=== PATIENT | female | born 1985 | race Caucasian/White ===

== ENCOUNTER → 2017-04-10 | Outpatient (CLI) | payer OTHER ==
[~2017-04-10] MED LIST: GADOBUTROL 10 MMOL/10 ML VIAL IV ONE
--- NOTE | 2017-04-10 16:29 | KCIC ---
MRI abdomen with and without contrast dated 04/10/2017. No comparison available. Clinical indication: History of abnormal CT. Evaluate liver lesion. TECHNIQUE: Routine multiplanar multisequence MR imaging of abdomen performed with and without the administration of 6 cc Gadavist. FINDINGS: The liver is heterogeneous in signal and there is diffuse signal dropout on the out of phase gradient images, suggesting fatty infiltration. There are multiple well-circumscribed nodules throughout the left and right lobe that remain hyperintense in signal on the out of phase images and are hyperintense on the precontrast gradient T1 images. The largest lesion is located in the inferior right lobe, segment 5 measuring 3.1 cm in size. There are also 2 prominent nodules at the right lobe liver superiorly, segment 8 measuring 1.2 and 2.0 cm in size in age. There are several additional smaller nodules scattered throughout both lobes. The lesions show some arterial hyperenhancement and remain hyperintense throughout the delayed phases. The lesions are mildly hyperintense signal on T2. The biliary tree is normal in caliber. No filling defect of the CBD. Gallbladder unremarkable. Spleen is normal in size. Pancreas, adrenal glands and kidneys are unremarkable. No hydronephrosis. No localized adenopathy or ascites. IMPRESSION: 1. Multiple T1 hyperintense hyperenhancing nodules scattered throughout both lobes of liver, indeterminate. Differential diagnosis would include multifocal nodular hyperplasia (FNH) or multiple hepatic adenoma. Metastatic disease or multifocal hemangioma considered less likely. Follow-up imaging may be warranted to ensure stability. 2. Fatty infiltration of the liver. Electronically signed by: Glenn Gibbons MD (04/10/2017 4:26 PM) [id number]
== END | disposition home or self-care (01) ==
LOC: KCIC MRI 14:20
PROVIDERS: ATTEND Internal Medicine Gastroenterology
DX: K76.0 Fatty (change of) liver, not elsewhere classified (principal)
CPT/HCPCS: 74183; A9585

== ENCOUNTER → 2017-10-27 | Outpatient (CLI) | payer OTHER ==
[2017-10-27] MEDS: GADOBUTROL 10 MMOL/10 ML VIAL IV (15:46)
== END | disposition home or self-care (01) ==
LOC: KCIC MRI 15:12
DX: K76.0 Fatty (change of) liver, not elsewhere classified (principal); K31.89 Other diseases of stomach and duodenum
CPT/HCPCS: 74183; A9585

== ENCOUNTER → 2020-02-07 | Outpatient (CLI) | payer OTHER ==
[~2020-02-07] MED LIST changes: -GADOBUTROL 10 MMOL/10 ML VIAL IV ONE; +OXYC1TAB15 PO
== END | disposition home or self-care (01) ==
LOC: LAB 14:42
PROVIDERS: ATTEND Surgery
DX: Z01.812 Encounter for preprocedural laboratory examination (principal); K80.20 Calculus of gallbladder without cholecystitis without obstruction; Z20.828 Contact with and (suspected) exposure to other viral communicable diseases
CPT/HCPCS: U0003-CS

== ENCOUNTER 2020-02-12 07:52 | Day surgery (SDC) | payer OTHER ==
[~2020-02-12] VITALS: Ht 152.4 cm; Wt 64.0 kg
[~2020-02-12 07:52] MED LIST changes: +BUPIVACAINE MPF 0.5% 30 ML VIAL. ONE; +HYDROmorphone 2 MG/ML VIAL IV PRN; +IOHEXOL 300 MG/ML 50 ML VIAL. ONE; +IV RINGERS,LACTATED 1000ML 1,000 ML IV SCH; +LIDOCAINE 1% PF 2 ML VIAL. ID PRN; +MORPHINE SULFATE 2 MG/ML VIAL. IV PRN; +ONDANSETRON PF 4 MG/2 ML VIAL. IV PRN; -OXYC1TAB15 PO; +PROCHLORPERAZINE 10 MG/2 ML VIAL. IV PRN; +SURGICEL HEMOSTAT 4X8 EACH. ONE; +ceFAZolin SODIUM IV Push 1 GM VIAL. IVP PRN; +fentaNYL PF VIAL 100 MCG/2 ML VIAL IV PRN
[2020-02-12] MEDS ORDERED: PROPOFOL 10 MG/ML (20ML) VIAL. IV ONE (08:03)
[2020-02-12] MEDS ORDERED: fentaNYL PF VIAL 250 MCG/5 ML VIAL ONE (08:03)
[2020-02-12] MEDS ORDERED: LIDOCAINE 2% PF 5 ML VIAL. ONE (08:03)
[2020-02-12] MEDS ORDERED: DEXAMETHASONE SOD PHOS 4 MG/ML VIAL ONE (08:03)
[2020-02-12] MEDS ORDERED: ROCURONIUM 50 MG/5 ML VIAL. ONE (08:03)
[2020-02-12] MEDS ORDERED: MIDAZOLAM HCL/PF 2 MG/2 ML VIAL. ONE (08:03)
[2020-02-12] MEDS ORDERED: ONDANSETRON PF 4 MG/2 ML VIAL. ONE (08:03)
[2020-02-12] MEDS ORDERED: SEVOFLURANE 31 TO 60 MINUTES. IH ONE (09:16)
[2020-02-12] MEDS ORDERED: GLYCOPYRROLATE 1 MG/5 ML VIAL. ONE (09:49)
[2020-02-12] MEDS ORDERED: NEOSTIGMINE METHYLSULFATE 5 MG/5 ML SYRINGE. ONE (09:49)
--- NOTE | 2020-02-12 10:23 | RAD ---
EXAM: INTRAOPERATIVE CHOLANGIOGRAM. HISTORY: Intraoperative cholangiogram with cholecystectomy. COMPARISON: None. FINDINGS: 2 fluoroscopic images are obtained intraoperatively during injection of the cystic duct remnant after cholecystectomy. There are no filling defects to suggest retained stones. The common duct is not dilated. Fluoroscopy time 0.18 minutes seconds. IMPRESSION: 1. No evidence of retained stones. Electronically signed by: Candice Truong MD (02/12/2020 10:20 AM) [id number]
[2020-02-12] MEDS ORDERED: PROCHLORPERAZINE 10 MG/2 ML VIAL. ONE (10:27)
[2020-02-12] MEDS ORDERED: fentaNYL PF VIAL 100 MCG/2 ML VIAL ONE ×2 (10:27→11:53)
--- NOTE | 2020-02-12 10:33 | PDOC4 ---
Operative Note Operative Note Operative Note: Preoperative Diagnosis: Symptomatic cholelithiasis Postoperative Diagnosis: Same Procedure: Laparoscopic cholecystectomy with intraoperative cholangiogram Surgeons: Douglas Assembler Filters: Epifanio LR Anesthesia: Gen. Estimated Blood Loss: 40 mL Specimen: Gallbladder to pathology Drains: None Complications: None Indications: The patient is a 35 year old female who was referred following testing suggesting symptomatic cholelithiasis. Surgical treatment was offered by means of a laparoscopic cholecystectomy. The risks of surgery were discussed which include bleeding, infection, bile duct injury, bile leak, pain, the potential for additional surgeries or procedures. The patient understands and would like to proceed. Description: The patient was taken to the operating room and laid supine on the operating table. General anesthesia was performed. The abdomen was prepped with ChloraPrep and draped in a standard surgical fashion. A small infraumbilical incision was made with a scalpel. The Veress needle was then inserted and a pneumoperitoneum was then created. A 5 mm trocar was then inserted and the laparoscope was introduced. In the upper midabdomen a 5 mm trocar was inserted and in the right upper quadrant two 2.3 mm mini lap graspers were inserted. The gallbladder was retracted cephalad. The cystic duct was dissected free from surrounding tissues. One clip was placed on the duct near the gallbladder junction. An opening was made in the duct and a cholangiocatheter placed within and secured with a clip. Using contrast dye and fluoroscopy an intraoperative cholangiogram was performed that appeared unremarkable. The clip and catheter were then withdrawn. Three clips were placed on the cystic duct and it was divided. The cystic artery was then identified, dissected free, doubly clipped and divided as well. The gallbladder was then mobilized away from the liver with cautery. A small piece of Surgicel was placed on the gallbladder fossa to assist with hemostasis. The umbilical 5 millimeter trocar was exchanged for an 11 millimeter trocar. The gallbladder was then placed in an endoscopic bag and extracted at the umbilical trocar site. The fascia there was closed with an 0 Vicryl suture. All blood and irrigation fluid was suctioned and hemostasis was good. The remaining ports were removed and the pneumoperitoneum was relieved. The skin incisions were closed using 4-0 Monocryl suture. Steri-Strips and dressings were then applied. The patient tolerated the procedure well and was sent to the recovery room in stable condition. At the end of the case all counts were correct. ANETA SPANN MD Feb 12, 2020 10:33
--- NOTE | 2020-02-12 10:35 | DISCH ---
DISCHARGE INSTRUCTIONS Condition on Discharge Condition on Discharge: Stable Activity After Discharge Activity Instructions for Disc: Other, see below (No lifting over 20 lbs X 2 weeks, no strenuous activity) Diet after Discharge Diet after Discharge: Regular Wound Incision Care Wound/Incision Care: Other, see below (may remove bandaids tomorrow and shower, leave steristrips on and they will fall off on their own) Follow-Up Follow up with: Dr Spann in office in 2 weeks, call for appt [phone] ANETA SPANN MD Feb 12, 2020 10:35
[2020-02-12] MEDS ORDERED: OXYC1TAB15 PO (10:48)
[2020-02-12] MEDS ORDERED: oxyCODONE/APAP 5/325 1 TAB TABLET PO ONE (11:45)
[2020-02-12 12:09] VITALS: BP 111/49
--- NOTE | 2020-02-14 16:07 | PATHOLOGY ---
[facility] Accession Number: [id number] . 01 Material submitted: . gallbladder - GALLBLADDER AND CONTENTS . 01 Clinical history: . GALLSTONES . 02 Diagnosis: Gallbladder, cholecystectomy: - Cholelithiasis. - Cholesterolosis. - Chronic cholecystitis. ([facility] 02/14/2020) [facility] 02/14/2020 1050 Local . 02 Comment: There is no evidence of malignancy. ([facility] 02/14/2020) . 02 Electronically signed: . Fernando Kong MD, Pathologist NPI- [id number] . 01 Gross description: . The specimen is received in formalin, labeled "Esperanza Kirby, gallbladder and contents". Received is an intact gallbladder measuring 10.2 x 2.6 x 2.6 cm in greatest dimensions displaying a blue-reynolds serosal surface. Opening the specimen reveals a velvety, bile-stained mucosa with a gallbladder wall thickness of 0.1 cm. Calculi are present displaying a bright yellow and multinodular appearance, and no masses or lesions are noted grossly. [employer] sections, to include the proximal margin, are submitted in cassette A1. ([facility]; 02/13/2020) [facility] 02/13/2020 1041 Local . 02 Pathologist provided ICD-10: K80.10, K82.4 . 02 CPT . 818692 Specimen Comment: A courtesy copy of this report has been sent to [phone] Specimen Comment: Report sent to Performed at: 01 [facility] [address], [place], [place] [id number] MD Juan Altamirano MD Phone: [phone] Performed at: [facility] [address], [place] [id number] MD Fernando oKng MD Phone: [phone]
== END 2020-02-12 12:35 | disposition home or self-care (01) ==
LOC: SURG 07:52
PROVIDERS: ATTEND Surgery
DX: K80.10 Calculus of gallbladder with chronic cholecystitis without obstruction (principal); K91.5 Postcholecystectomy syndrome; Z98.890 Other specified postprocedural states; Z90.49 Acquired absence of other specified parts of digestive tract; Z79.899 Other long term (current) drug therapy
CPT/HCPCS: 47563; 74300; 81025; 88304; A7015; J0690; J0780; J1100; J2250; J2405; J2704; J2710; J3010; J3490; J7030; Q9967